=== PATIENT | male | born 1965 | race American Indian/Alaskan Native ===

== ENCOUNTER 2016-10-12 23:05 | Emergency (ER) | payer OTHER ==
[2016-10-13 00:37] LABS: Bilirubin,Urine NEG (Negative); Blood,Urine NEG (Negative); Ketones,Urine NEG (Negative); Leukocyte Esterase,Urine NEG (Negative); Nitrite,Urine NEG (Negative); Protein,Urine <15 mg/dL mg/dL (Negative); Urobilinogen,Urine < 2.0 mg/dL (<2.0)
[2016-10-13] MEDS ORDERED: ROCEPHIN IM ONE (01:57)
[2016-10-13] MEDS ORDERED: XYLOCAINE 1% MPF 5 mL INFILTRATI ONE (01:57)
--- NOTE | 2016-10-13 01:57 | Emergency Department Report ---
ED Male HPI - General Chief complaint: Urogenital-Male Stated complaint: PENILE DISCHARGE Time Seen by Provider: 10/13/16 01:35 Source: patient Mode of arrival: Ambulatory Limitations: No Limitations - History of Present Illness Initial comments: 51M PMH leukemia, lymphoma in remission last treated 2016 p/w x3 days of penile discharge. Denies any abd pain, no fever, no chills, no n/v/d. Denies any difficultly defecating or rectal pain. non toxic appearing. States he has had GC in the past. Currently sexually active. MD Complaint: dysuria Onset/Timin -: days(s) Location: penis Radiation: none Severity: moderate Quality: burning Consistency: intermittent discharge - Related Data Previous Rx's Medication Instructions Recorded Last Taken Type Doxycycline [Vibramycin CAP] 100 mg PO Q12HR #20 capsule 01/21/15 Unknown Rx Allergies Allergy/AdvReac Type Severity Reaction Status Date / Time No Known Allergies Allergy Verified 01/21/15 09:18 ED Review of Systems ROS: Stated complaint: PENILE DISCHARGE Other details as noted in HPI Constitutional: denies: chills, fever Eyes: denies: eye pain, eye discharge, vision change ENT: denies: ear pain, throat pain Respiratory: denies: cough, shortness of breath, wheezing Cardiovascular: denies: chest pain, palpitations Endocrine: no symptoms reported Gastrointestinal: denies: abdominal pain, nausea, diarrhea Genitourinary: dysuria. denies: urgency Musculoskeletal: denies: back pain, joint swelling, arthralgia Skin: denies: rash, lesions Neurological: denies: headache, weakness, paresthesias Psychiatric: denies: anxiety, depression Hematological/Lymphatic: denies: easy bleeding, easy bruising ED Past Medical Hx - Past Medical History Previous Medical History?: Yes Hx of Cancer: Yes - Surgical History Past Surgical History?: No - Social History Smoking Status: Never Smoker Substance Use Type: Alcohol - Medications Home Medications: Home Medications Medication Instructions Recorded Confirmed Last Taken Type Doxycycline [Vibramycin CAP] 100 mg PO Q12HR #20 capsule 01/21/15 Unknown Rx ED Physical Exam - General Limitations: No Limitations General appearance: alert, in no apparent distress - Head Head exam: Present: atraumatic, normocephalic - Eye Eye exam: Present: normal appearance, PERRL, EOMI - ENT ENT exam: Present: mucous membranes moist - Neck Neck exam: Present: normal inspection - Respiratory Respiratory exam: Present: normal lung sounds bilaterally. Absent: respiratory distress - Cardiovascular Cardiovascular Exam: Present: regular rate, normal rhythm. Absent: systolic murmur, diastolic murmur, rubs, gallop - GI/Abdominal GI/Abdominal exam: Present: soft, normal bowel sounds - Rectal Rectal exam: Present: deferred - exam: Present: urethral discharge (yellowish, whitish urethral discharge) - Extremities Exam Extremities exam: Present: normal inspection - Back Exam Back exam: Present: normal inspection - Neurological Exam Neurological exam: Present: alert, oriented X3, CN II-XII intact - Psychiatric Psychiatric exam: Present: normal affect, normal mood - Skin Skin exam: Present: warm, dry, intact, normal color. Absent: rash ED Course Vital Signs 10/12/16 23:30 Temperature 98.2 F Pulse Rate 63 Respiratory 20 Rate Blood Pressure 123/82 O2 Sat by Pulse 98 Oximetry ED Medical Decision Making - Medical Decision Making A/P: Urethritis 1-empiric treatment with ceftriaxone and azithromycin 2-follow up with primary care and urology 3- culture sent Critical care attestation.: If time is entered above; I have spent that time in minutes in the direct care of this critically ill patient, excluding procedure time. ED Disposition Clinical Impression: Urethritis Disposition: - TO HOME OR SELFCARE Is pt being admited?: No Does the pt Need Aspirin: No Condition: Stable Instructions: Nonspecific Urethritis in Men (ED) Referrals: [facility] [Provider Group] - 3-5 Days TACO ABEBE MD [Staff Physician] - 3-5 Days Forms: STI Treatment and Prevention Time of Disposition: 02:07
[2016-10-13] MEDS ORDERED: ZITHROMAX PO ONE (01:58)
[2016-10-13 02:21] VITALS: BP 160/92
== END 2016-10-13 02:21 | disposition home or self-care (01) ==
LOC: ED 23:05
DX: N34.2 Other urethritis (principal); Z85.9 Personal history of malignant neoplasm, unspecified
CPT/HCPCS: 81001; 87591; 96372; 99283; J0696